=== PATIENT | female | born 1990 | race Caucasian/White ===

== ENCOUNTER 2022-02-05 15:47 | Emergency (ER) | payer MEDICAID | END 2022-02-05 17:00 | disposition home or self-care (01) | LOC: FB.ED 15:47 | DX: K08.89 Other specified disorders of teeth and supporting structures (principal) | CPT/HCPCS: 99281; 99282 ==

== ENCOUNTER 2024-10-14 15:47 | Emergency (ER) | payer MEDICAID ==
[2024-10-14] MEDS ORDERED: traMADol 50 MG Tab PO ONE (15:48)
[2024-10-14] MEDS ORDERED: Sodium Chloride 0.9% 10 ML Syringe FLUSH PRN (16:34)
[2024-10-14 16:59] LABS: BASOPHILS PERCENT AUTO 0.2 % (0.2-1.5); EOSINOPHILS ABSOLUTE AUTO 0.2 x10-3/uL (0.0-0.8); EOSINOPHILS PERCENT AUTO 2.4 % (0.6-8.1); HEMATOCRIT 33.7 % (34.2-48.2); HEMOGLOBIN 10.4 g/dL (11.4-15.5); LYMPHOCYTES ABSOLUTE AUTO 1.5 x10-3/uL (1.0-4.4); LYMPHOCYTES PERCENT AUTO 18.3 % (18.4-52.1); MEAN CORPUSCULAR HEMOGLOBIN 22.2 pg (23.9-33.9); MEAN CORPUSCULAR VOLUME 71.8 fL (76.7-100.5); MEAN PLATELET VOLUME 8.1 fL (7.1-12.4); MONOCYTES ABSOLUTE AUTO 0.4 x10-3/uL (0.3-1.0); MONOCYTES PERCENT AUTO 4.7 % (4.4-15.7); NEUTROPHILS PERCENT AUTO 74.4 % (30.8-76.2); PLATELET COUNT,PLT 289 x10(3)uL (151-488); RED CELL DISTRIBUTION WIDTH 18.4 % (12.3-16.5); WHITE BLOOD CELL COUNT,WBC 8.1 x10-3/uL (3.0-10.3)
[2024-10-14 17:01] LABS: BLOOD UREA NITROGEN,BUN 6 mg/dL (7-18); BUN/CREATININE RATIO 8.6 (9-20); CARBON DIOXIDE,CO2 30 mmol/L (21-32); CHLORIDE,CL 103 mmol/L (100-110); CREATININE 0.7 mg/dL (0.55-1.02); EST CRCL DRUG DOSING (CG) 81.34 mL/min; ESTIMATED GFR 116 mL/min (>60); GLUCOSE RANDOM 94 mg/dL (80-116); POTASSIUM,K 3.8 mmol/L (3.5-5.3); SODIUM,NA 141 mmol/L (135-145)
[2024-10-14 17:07] LABS: A/G RATIO 0.8; ALANINE AMINOTRANSFERASE,ALT 50 U/L (12-36); ALBUMIN 3.4 g/dL (3.5-5.2); ALKALINE PHOSPHATASE 114 IU/L (56-112); ASPARTATE AMNIOTRANSFERASE,AST 28 IU/L (5-25); BILIRUBIN TOTAL 0.4 mg/dL (0.1-1.3); MAGNESIUM 1.7 mg/dL (1.8-2.5); PROTEIN TOTAL,TP 7.6 g/dL (6.0-8.0)
[2024-10-14 17:41] LABS: BILIRUBIN,URINE NEGATIVE (NEGATIVE); GLUCOSE,URINE NORMAL (NORMAL); KETONES,URINE NEGATIVE (NEGATIVE); LEUKOCYTE ESTERASE,URINE NEGATIVE (NEGATIVE); NITRITE,URINE NEGATIVE (NEGATIVE); OCCULT BLOOD,URINE NEGATIVE (NEGATIVE); PROTEIN,URINE NEGATIVE (NEGATIVE); UROBILINOGEN,URINE NORMAL (NEGATIVE)
[2024-10-14 17:47] LABS: APPEARANCE,URINE CLEAR (CLEAR); COLOR,URINE YELLOW (YELLOW); RBC,URINE 0-5 (0-5)
[2024-10-14 17:48] LABS: BACTERIA,URINE FEW (NS); SQUAMOUS EPITHELIAL CELLS,UR OCCASIONAL (NS,R,O)
[2024-10-14] MEDS: Ondansetron 4 MG/2 ML SDV IVPUSH ONE (17:50)
[2024-10-14] MEDS: Ketorolac 30 MG/ML SDV IVPUSH ONE (17:51)
[2024-10-14] MEDS: Sodium Chloride 0.9% 1,000 ML IV ONE (18:26)
== END 2024-10-14 20:04 | disposition home or self-care (01) ==
LOC: FB.ED 15:47
DX: N94.6 Dysmenorrhea, unspecified (principal); E86.0 Dehydration; Z79.899 Other long term (current) drug therapy
CPT/HCPCS: 36415; 74176; 80053; 81001; 81025; 83735; 85025; 86140; 96361; 96374; 96375; 99284; A9270; C1758; J1885; J2405; J7030